=== PATIENT | female | born 1950 | race Caucasian/White ===

== ENCOUNTER 2025-08-27 06:12 | Outpatient (CLI) | payer MEDICARE, BC, SELFPAY ==
--- NOTE | 2025-08-27 07:44 | P.ANES_ITS ---
Anesthesia Charges Start Date/Time Anesthesia Start Date: 08/27/25 Anesthesia Start Time: 07:16 Stop Date/Time Anesthesia Stop Date: 08/27/25 Anesthesia Stop Time: 07:37 Summary Extremes of Age - Over 70 or under 1: FINANCIAL SALES CONSULTANT Coding CPT Codes CPT Codes: ANES LWR INTST SCR COLSC - 99928 ([id number]) P2 - PATIENT W/MILD SYST DISEASE, QK - WINDOW REPAIRER 2-4 CNCRNT ANES PROC, QX - FINANCIAL SALES CONSULTANT SVC W/ MD MED DIRECTION Additional Codes: Summary - Extremes of Age - Over 70 or under 1: FINANCIAL SALES CONSULTANT ([id number])
--- NOTE | 2025-08-27 07:44 | W.ANESCHARGE ---
Anesthesia Charges Start Date/Time Anesthesia Start Date: 08/27/25 Anesthesia Start Time: 07:16 Stop Date/Time Anesthesia Stop Date: 08/27/25 Anesthesia Stop Time: 07:37 Summary Extremes of Age - Over 70 or under 1: SCISSORS SHARPENER Coding CPT Codes CPT Codes: ANES LWR INTST SCR COLSC - [id number] ([id number]) P2 - PATIENT W/MILD SYST DISEASE, QK - COMMUNITY SUPPORT PROFESSIONAL 2-4 CNCRNT ANES PROC, QX - SCISSORS SHARPENER SVC W/ MD MED DIRECTION Additional Codes: Summary - Extremes of Age - Over 70 or under 1: SCISSORS SHARPENER ([id number])
--- NOTE | 2025-08-27 09:56 | P.ANES_ITS ---
Anesthesia Charges Start Date/Time Anesthesia Start Date: 08/27/25 Anesthesia Start Time: 07:16 Stop Date/Time Anesthesia Stop Date: 08/27/25 Anesthesia Stop Time: 07:37 Summary Extremes of Age - Over 70 or under 1: MDA Coding CPT Codes CPT Codes: ANES LWR INTST SCR COLSC - [id number] ([id number]) P2 - PATIENT W/MILD SYST DISEASE, QK - HOSPITAL MEDICAL BILLER 2-4 CNCRNT ANES PROC, QX - EXTERNAL GRINDER SVC W/ MD MED DIRECTION Additional Codes: Summary - Extremes of Age - Over 70 or under 1: MDA ([id number])
--- NOTE | 2025-08-27 09:56 | W.ANESCHARGE ---
Anesthesia Charges Start Date/Time Anesthesia Start Date: 08/27/25 Anesthesia Start Time: 07:16 Stop Date/Time Anesthesia Stop Date: 08/27/25 Anesthesia Stop Time: 07:37 Summary Extremes of Age - Over 70 or under 1: MDA Coding CPT Codes CPT Codes: ANES LWR INTST SCR COLSC - 53914 ([id number]) P2 - PATIENT W/MILD SYST DISEASE, QK - THREAD SPINNER 2-4 CNCRNT ANES PROC, QX - COCOA POWDER MIXER OPERATOR SVC W/ MD MED DIRECTION Additional Codes: Summary - Extremes of Age - Over 70 or under 1: MDA ([id number])
== END 2025-08-27 06:13 | disposition home or self-care (01) ==
PROVIDERS: PCP Student in an Organized Health Care Education/Training Program; Visit Provider Internal Medicine Gastroenterology
DX: Z12.11 Encounter for screening for malignant neoplasm of colon (principal); Z86.0101 Personal history of adenomatous and serrated colon polyps; K57.30 Diverticulosis of large intestine without perforation or abscess without bleeding
CPT/HCPCS: 00812; 45378; 99100; J2704